=== PATIENT | female | born 1990 | race Caucasian/White ===

== ENCOUNTER 2020-08-15 15:12 | Emergency (ER) | payer MEDICAID, SELFPAY ==
[2020-08-15 15:14] VITALS: BP 139/83; PULSE 90; RESP 17; TEMP 36.4; O2SAT 100; BMI 22.8
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
[2020-08-15] MEDS: predniSONE 20 MG Tablet 40 MG PO (15:49)
[2020-08-15] MEDS: diazePAM 5 MG Tablet PO (15:49)
== END 2020-08-15 16:10 | disposition home or self-care (01) ==
LOC: ED 15:50
PROVIDERS: Emergency Provider Emergency Medicine
DX: O99.891 Other specified diseases and conditions complicating pregnancy (principal); S09.90XA Unspecified injury of head, initial encounter; S16.1XXA Strain of muscle, fascia and tendon at neck level, initial encounter; V89.2XXA Person injured in unspecified motor-vehicle accident, traffic, initial encounter; Y93.89 Activity, other specified; Y92.410 Unspecified street and highway as the place of occurrence of the external cause; Z3A.00 Weeks of gestation of pregnancy not specified
CPT/HCPCS: 99283

== ENCOUNTER 2023-07-08 12:21 | Emergency (ER) | payer MEDICAID, SELFPAY ==
[2023-07-08 12:22] VITALS: BP 126/76; PULSE 76; RESP 16; TEMP 36; O2SAT 96; BMI 23.6
--- NOTE | 2023-07-08 12:52 | ED.VIS.FEGU ---
HPI HPI - Female History of Present Illness Chief Complaint: Informant: patient Pain Pain: Positive for Pelvic Pain Onset: Today Context: Gradual Onset Timing: Intermittent Current Severity: Mild Maximum Severity: Mild Worsened by: Movement Relieved by: Remaining Still Bleeding Issue: Negative for Vaginal bleeding, Passing clots or Passing tissue Associated Symptoms Associated Symptoms: Positive for Missed Period; Negative for Dysuria, Frequency, Urgency or Hematuria Test: Positive Sexually: Positive for Active Control: No control P: 2 Ab: 0 Narrative Narrative: 33-year-old female no seen past medical history. Currently 6 weeks . Last menstrual period was around 05/24/2023. She is G3, P2 Ab0. Denies any prior abdominal or pelvic surgeries. Denies any dysuria or fever. No vaginal bleeding. She has had intermittent cramping in the last days. No vaginal bleeding. Prior similar symptoms: No Recent Illness/Hospitalization: No PFSH PFSH Medical History Anxiety Depression Home Medications sertraline 100 mg tablet 200 mg PO Q24H 07/08/23 [History Last Taken Unknown] Allergy/AdvReac Type Severity Reaction Status Date / Time No Known Allergies Allergy Verified 08/15/20 15:13 Family History no significant family his Surgical History no surgical history Social History household members: children housing: house Smoking Status: Former smoker ROS ROS ED ROS Narrative Pelvic cramping. No bleeding. No fever. No dysuria. Review of Systems ROS Unobtainable: Denies due to encephalopathy Constitutional Constitutional ED: Denies chills or fever(s) Eyes Eyes: Denies blurry vision ENT ENT ED: Denies ear pain Cardiovascular Cardiovascular: Denies chest pain Respiratory/Chest Respiratory/Chest: Denies cough or dyspnea Gastrointestinal Gastrointestinal: Reports nausea; Denies abdominal pain Genitourinary Genitourinary ED: Denies dysuria, hematuria or urinary frequency Musculoskeletal Musculoskeletal: Denies arthralgias or myalgias Integumentary Denies abscess Neurologic Neurologic: Denies headache(s) Psychiatric Psychiatric: Denies anxiety Endocrine Endocrinology: Denies heat intolerance Hematologic/Lymphatic Hematologic/Lymphatic: Denies easy bleeding or easy bruising Allergic/Immunologic Allergic/Immunologic ED: Denies mouth swelling or tongue swelling EXAM Physical Exam Narrative Exam Narrative: 3-year-old female vital signs stable afebrile. HEENT exam unremarkable. Neck nontender. Lungs clear to auscultation bilaterally. Heart regular rhythm no murmur. Rate about 75. Abdomen soft nondistended normal bowel sounds no peritoneal signs. Mild suprapubic discomfort. No right upper or right lower quadrant tenderness. No distention no hernia. No peritoneal signs. Moving all 4 extremities. Back nontender. Const Vital Signs: 07/08/23 12:22 Temperature 96.8 F L Temperature Source Temporal Pulse Rate 76 Respiratory Rate 16 Blood Pressure 126/76 H Blood Pressure Mean 92 Pulse Ox 96 Oxygen Delivery Method Room Air Positive well nourished and well developed; Negative for obese, cachectic, contractures or unkempt General Appearance ED: well developed and NAD; Negative for unkempt, cachectic, contractures, odor of alcohol detected or pallor Nutritional Appearance: Negative for cachectic or obese HEENT Reports moist mucous membranes; Denies dry mucous membranes Negative for trauma or tenderness Mouth ED: No dry mucous membranes Mouth: No dry mucous membranes Eyes PERRL and EOMs intact bilaterally General Eye ED: Negative for pale conjunctiva, scleral icterus or other Neck no lymphadenopathy, supple and no JVD General: Negative for other Thyroid: Negative for tender Lymph Lymphatic: Negative for other Chest Wall palpation of chest normal Chest: Negative for other Resp normal respiratory effort and clear to auscultation bilaterally Effort and Inspection: Negative for pain with movement Auscultation: Negative for rales, rhonchi or wheezes Cardio regular rate, regular rhythm, S1 normal heart sound, no murmurs and no JVD Rate: Negative for bradycardia or tachycardic Rhythm: Negative for abnormal rhythm GI normal to inspection, nondistended, normoactive bowel sounds, soft to palpation and no masses; Negative for non-tender GI Narrative: Suprapubic tenderness only. No right upper or right lower quadrant tenderness. No peritoneal signs. Auscultation: normoactive bowel sounds Palpation: Negative for tender, guarding, rigid, hepatomegaly, splenomegaly or mass Back/Spine no CVA tenderness General Back: Negative for CVA tenderness Cervical Spine: Negative for cervical spine tenderness Thoracic Spine / Upper Back: Negative for thoracic spinal tenderness Lumbar Spine / Lower Back: Negative for lumbar spinal tenderness Sacrum: Negative for other Extremity normal to inspection and full ROM General Extremety ED: Negative for edema or tenderness General Extremity: Negative for edema Neuro oriented x3, CN's II-XII intact bilaterally and no sensory deficits noted Sensorium / Orientation: alert, oriented to person, oriented to place and oriented to time Motor Exam: strength 5/5 throughout Psych Appearance: Negative for unkempt Attitude: No agitated Speech: No other Mood & Affect: Negative for depressed, anxious or tearful Skin no rashes or lesions noted and no wounds General Skin Exam: Negative for jaundice or pallor Rashes: No rashes noted Trauma: Negative for other MDM MDM MDM Narrative Medical decision making narrative: 33-year-old female male with pelvic cramping. Urinalysis, quant ultrasound to be obtained. Clinically her abdomen is benign low suspicion for an ectopic. She is not having any bleeding. No urinary symptoms. Repeat exam patient is doing well. Abdomen nontender. I discussed all test results with the patient. She understands she is not . She will be discharged home with outpatient follow-up. Motrin and Tylenol for pain. History & Record Review Discussion w/independent historian: Patient Additional record(s) reviewed:: No prior records Lab Data Attestation: I reviewed the patient's lab results. Lab results narrative: Quantitative hCG was less than 1 so she is not . UA shows 5-10 white cells but only rare bacteria no nitrates. Blood type O+. Labs: Laboratory Results - last 24 hr 07/08/23 07/08/23 12:57 13:05 HCG, Quant < 1 Urine Color Yellow Urine Clarity Clear Urine pH 6.0 Ur Specific [place] 1.010 Urine Protein Negative Urine Glucose (UA) Normal Urine Ketones Negative Urine Occult Blood Negative Urine Nitrite Negative Urine Bilirubin Negative Urine Urobilinogen Normal Ur Leukocyte Esterase 100 H Urine RBC 0 SEEN Urine WBC 5-10 SEEN Ur Squamous Epith Cells 0-5 SEEN Urine Bacteria RARE Urine Mucus 0 SEEN Blood Type O POSITIVE A1 Antigen Typing Cancelled Rho(D) Type Cancelled Discharge Plan Triage Chief Complaint: Other Complaint: Abd Pain ED Provider: Trevor Lyon Dx/Rx/DC Orders Clinical Impression: Pelvic pain Instructions: ED Pelvic Pain, Unknown Cause Prescriptions: No Action sertraline 100 mg tablet 200 mg PO Q24H Patient Comments: TAKE 2 TABLETS BY MOUTH DAILY Primary Care Provider: Care Physician,No Primary Referrals: Rashi Felder MD [Med Staff - Active Staff] - 10-14 Days if not better NOT,DEFINED [Non-Staff] - Activity Restrictions/Additional Instructions: You are not . Your test was negative. Urine showed no signs of infection just some white blood cells. A culture will be sent at this time do not be treated with any antibiotics. Tylenol and Motrin for pain. Follow-up with your DIRECTOR OF MATH doctor. Disposition Disposition: Home, Self Care
[2023-07-08 13:01] LABS: Mucous, Urine 0 SEEN /hpf (<or=2+); Red Blood Cells-Urine 0 SEEN /hpf (0-5)
[2023-07-08 13:03] LABS: Color, Urine Yellow (Yellow); Glucose, Dipstick Normal (Normal); Ketone-Dipstick Negative (Negative); Leukocyte Esterase-Dipstick 100 /ul (Negative); Nitrite-Dipstick Negative (Negative); Occult Blood-Urine Negative /ul (Negative); Protein-Dipstick Negative (Negative); Urine Bilirubin Dipstick Negative (Negative); Urine Clarity Clear (Clear); Urine Urobilinogen Normal (Normal)
[2023-07-08 13:23] LABS: Bacteria RARE /hpf (None Seen); Squamous Epithelial Cells - UA 0-5 SEEN /hpf (5-10); White Blood Cells 5-10 SEEN /hpf (0-5)
[2023-07-08 13:33] LABS: hCG Titer Quant., Serum < 1 mIU/mL (1-3)
[2023-07-08 15:21] VITALS: RESP 16
== END 2023-07-08 15:22 | disposition home or self-care (01) ==
PROVIDERS: Emergency Provider Emergency Medicine; Visit Provider Emergency Medicine
DX: O26.891 Other specified pregnancy related conditions, first trimester (principal); R10.2 Pelvic and perineal pain; Z87.891 Personal history of nicotine dependence; Z79.899 Other long term (current) drug therapy; Z3A.01 Less than 8 weeks gestation of pregnancy
CPT/HCPCS: 81001; 84702; 86900; 86901; 87086; 99283; A4216